=== PATIENT | female | born 1970 | race Hispanic/Latino ===

== ENCOUNTER 2019-05-04 01:11 | Observation (INO) | payer BC ==
[2019-05-04] MEDS ORDERED: ASPIRIN PO ONE (01:49)
[2019-05-04 02:40] LABS: Basophils # (Auto) 0.1 K/mm3 (0.0-0.1); Basophils % (Auto) 0.7 % (0.0-1.8); Eosinophils # (Auto) 0.1 K/mm3 (0.0-0.4); Eosinophils % (Auto) 0.6 % (0.0-4.3); Hematocrit 33.9 % (30.3-42.9); Hemoglobin 10.7 gm/dl (10.1-14.3); Lymphocytes # (Auto) 1.8 K/mm3 (1.2-5.4); Lymphocytes % (Auto) 19.1 % (13.4-35.0); Mean Corpuscular HGB Conc 31 % (30-34); Monocytes # (Auto) 0.7 K/mm3 (0.0-0.8); Monocytes % (Auto) 7.4 % (0.0-7.3); Platelet Count 263 K/mm3 (140-440); Red Blood Count 5.04 M/mm3 (3.65-5.03); Red Cell Distribution Width 17.4 % (13.2-15.2)
[2019-05-04 02:43] LABS: Mean Corpuscular Volume 67 fl (79-97)
[2019-05-04 02:51] LABS: INR 0.92 (0.87-1.13)
[2019-05-04 02:52] LABS: Partial Thromboplastin Time 29.2 Sec. (24.2-36.6)
[2019-05-04 03:01] LABS: BUN/Creatinine Ratio 16; Blood Urea Nitrogen 18 mg/dL (7-17); Calcium 9.4 mg/dL (8.4-10.2); Hemolysis Index 5
[2019-05-04] MEDS ORDERED: CARAFATE PO ONE (03:15)
[2019-05-04] MEDS ORDERED: NITROSTAT SL PRN ×2 (03:15→06:26)
[2019-05-04] MEDS ORDERED: PEPCID PO ONE (03:15)
--- NOTE | 2019-05-04 03:15 | XRay Report ---
PROCEDURE: XR CHEST 1V AP TECHNIQUE: Chest radiograph single view. HISTORY: Chest Pain COMPARISONS: None . FINDINGS: The cardiomediastinal silhouette appears normal. The lungs are clear. The bones and soft tissues are unremarkable. IMPRESSION: No evidence of acute cardiopulmonary disease. This document is electronically signed by Lynne Das MD., May 04 2019 03:13:31 AM ET
--- NOTE | 2019-05-04 03:16 | Emergency Department Report ---
ED Chest Pain HPI - General Chief Complaint: Chest Pain Stated Complaint: CHEST PAIN SOB RACING HEART Time Seen by Provider: 05/04/19 02:28 Source: patient, RN notes reviewed Mode of arrival: Ambulatory Limitations: No Limitations - History of Present Illness Initial Comments: Patient does not have a local primary care doctor. This is a 48-year-old female. The patient is not known to this provider previously. Her past medical history includes hypertension, anxiety, depression and obesity. Reports a negative cardiac nuclear stress test 4 years ago. The patient states she is not . She has not taken aspirin recently. She denies DVT, pulmonary embolus or risk factors. Presents to the ER with complaint of chest discomfort. Chest discomfort started at approximately 10:00 yesterday evening. It is described as a sensation of "weak", and she also describes pain that radiates to her left neck, jaw, into her back. The patient denies vomiting, she did feel nauseous, she denies diaphoresis, she denies exertional shortness of breath. She reports that she felt her breathing was "off." Patient reports that this feels similar to a prior event a few years ago, when she had her negative nuclear stress test. The patient currently denies headache, neck pain, abdominal pain, leg pain, leg swelling and urinary symptoms. She denies DVT, pulmonary embolus risk factors. She denies oral contraceptive use. MD Complaint: chest pain -: Sudden Onset: other (laying down and sleeping) Pain Location: left chest Pain Radiation: back Severity: mild Consistency: intermittent Improves With: nothing Worsens With: nothing Aspirin use within the Past 7 Days: (0) No - Related Data On Oral Contraceptives: No Allergies Allergy/AdvReac Type Severity Reaction Status Date / Time Sulfa (Sulfonamide Allergy Rash Verified 05/04/19 01:49 Antibiotics) Heart Score - HEART Score History: Moderately suspicious EKG: Non-specific Age: 45-65 Risk factors: 1-2 risk factors Troponin: < normal limit HEART Score: 4 - Critical Actions Critical Actions: 4-6 pts:12-16.6% risk of adverse cardiac event. Should be admitted ED Review of Systems ROS: Stated complaint: CHEST PAIN SOB RACING HEART Other details as noted in HPI Constitutional: denies: fever, malaise ENT: denies: hearing loss Respiratory: denies: cough Cardiovascular: chest pain Gastrointestinal: nausea. denies: vomiting Genitourinary: denies: dysuria Musculoskeletal: denies: back pain Skin: denies: lesions Neurological: denies: weakness Psychiatric: anxiety ED Past Medical Hx - Past Medical History Previous Medical History?: Yes Hx Hypertension: Yes Hx Psychiatric Treatment: Yes (Anxiety, Depression) Additional medical history: Obesity - Surgical History Hx Cholecystectomy: Yes Additional Surgical History: Tonsilectomy - Social History Smoking Status: Never Smoker Substance Use Type: None ED Physical Exam - General Limitations: No Limitations General appearance: alert, anxious, obese - Head Head exam: Present: atraumatic, normocephalic - Eye Eye exam: Present: normal appearance, EOMI - ENT ENT exam: Present: normal exam, normal orophraynx, mucous membranes moist, normal external ear exam - Neck Neck exam: Present: normal inspection, full ROM. Absent: tenderness, meningismus - Respiratory Respiratory exam: Present: normal lung sounds bilaterally, chest wall tendernes s, other (chaperoned by reaming machine tender Annel). Absent: respiratory distress, wheezes, rales, rhonchi, stridor - Cardiovascular Cardiovascular Exam: Present: regular rate, normal rhythm, normal heart sounds. Absent: bradycardia, tachycardia, irregular rhythm, systolic murmur, diastolic murmur, rubs, gallop - GI/Abdominal GI/Abdominal exam: Present: soft. Absent: distended, tenderness, guarding, rebound, rigid, pulsatile mass - Extremities Exam Extremities exam: Present: normal inspection, full ROM, other (2+ pulses noted in the bilateral upper, lower extremities. Compartments soft. No long bony tenderness. The pelvis is stable.). Absent: pedal edema, calf tenderness - Back Exam Back exam: Present: normal inspection, full ROM. Absent: tenderness, CVA tenderness (R), CVA tenderness (L), paraspinal tenderness, vertebral tenderness - Neurological Exam Neurological exam: Present: alert, oriented X3, other (Extraocular movements intact. Tongue midline. No facial droop. Facial sensation intact to light touch in the V1, V2, V3 distribution bilaterally. 5 and 5 strength in 4 extremities.. Sensation is intact to light touch in 4 extremities.). Absent: motor sensory deficit - Psychiatric Psychiatric exam: Present: anxious - Skin Skin exam: Present: warm, dry, intact, normal color. Absent: rash ED Course Vital Signs 06/05/04/19 05/04/19 01:43 02:22 02:30 Temperature 97.6 F Pulse Rate 73 96 H 93 H Respiratory 20 14 14 Rate Blood Pressure 133/80 O2 Sat by Pulse 98 98 Oximetry 05/04/19 05/04/19 05/04/19 02:46 03:00 03:16 Temperature Pulse Rate 97 H 99 H 93 H Respiratory 25 H 22 24 Rate Blood Pressure 109/70 O2 Sat by Pulse 95 96 96 Oximetry 05/04/19 05/04/19 05/04/19 03:30 03:46 04:00 Temperature Pulse Rate 89 89 86 Respiratory 23 23 24 Rate Blood Pressure 108/49 111/58 118/73 O2 Sat by Pulse 95 95 95 Oximetry 05/04/19 05/04/19 05/04/19 04:16 04:30 04:46 Temperature Pulse Rate 88 91 H 90 Respiratory 25 H 21 22 Rate Blood Pressure 113/65 106/58 111/52 O2 Sat by Pulse 95 95 95 Oximetry 05/04/19 05/04/19 05/04/19 05:00 05:16 05:30 Temperature Pulse Rate 88 89 87 Respiratory 15 17 20 Rate Blood Pressure 120/68 100/67 115/69 O2 Sat by Pulse 100 98 98 Oximetry 05/04/19 05:46 Temperature Pulse Rate 65 Respiratory 20 Rate Blood Pressure 111/70 O2 Sat by Pulse 100 Oximetry - Reevaluation(s) Reevaluation #1: 05/04/19 05:54 Differential diagnosis, including but not limited to: GERD, gastritis, hiatal hernia, costochondritis, pneumonia, anxiety, acute coronary syndrome Assessment and plan: 58-year-old female with reproducible chest wall pain, and chest pain. The patient is afebrile with reassuring vital signs. EKG nonspecific, without prior for comparison, troponin negative 2, no pulmonary embolism or DVT risk factors, low risk by well's criteria, perc negative, moderate risk by heart score Patient still having persistent back discomfort 4 hours, in spite of appropriate medical management. Given her risk of the heart score, abnormal EKG, patient to be admitted to the medical service for cardiac risk stratification. Case was presented to the Hospital physician, Dr. Carr, who has accepted the patient to his service. We discussed the history of physical laboratory studies, inpatient team requested d-dimer. We will order a d-dimer, and deferred to the inpatient team to follow this up. 05/04/19 06:04 GARFIELD score - Garfield Score Age > 65: (0) No Aspirin use within the Past 7 Days: (0) No 3 or more CAD Risk Factors: (0) No 2 or more Angina events in past 24 hrs: (0) No Known CAD with more than 50% Stenosis: (0) No Elevated Cardiac Markers: (0) No ST Deviation Greater than 0.5mm: (0) No GARFIELD Score: 0 ED Medical Decision Making - Lab Data Result diagrams: 05/04/19 02:25 05/04/19 02:25 Vital Signs 05/04/19 05/04/19 05/04/19 01:43 02:22 02:30 Temperature 97.6 F Pulse Rate 73 96 H 93 H Respiratory 20 14 14 Rate Blood Pressure 133/80 O2 Sat by Pulse 98 98 Oximetry 05/04/19 05/04/19 05/04/19 02:46 03:00 03:16 Temperature Pulse Rate 97 H 99 H 93 H Respiratory 25 H 22 24 Rate Blood Pressure 109/70 O2 Sat by Pulse 95 96 96 Oximetry 05/04/19 05/04/19 05/04/19 03:30 03:46 04:00 Temperature Pulse Rate 89 89 86 Respiratory 23 23 24 Rate Blood Pressure 108/49 111/58 118/73 O2 Sat by Pulse 95 95 95 Oximetry 05/04/19 05/04/19 04:16 04:30 Temperature Pulse Rate 88 91 H Respiratory 25 H 21 Rate Blood Pressure 113/65 106/58 O2 Sat by Pulse 95 95 Oximetry Lab Results 05/04/19 05/04/19 05/04/19 Range/Units 02:25 02:25 02:25 WBC 9.5 (4.5-11.0) K/mm3 RBC 5.04 H (3.65-5.03) M/mm3 Hgb 10.7 (10.1-14.3) gm/dl Hct 33.9 (30.3-42.9) % MCV 67 L (79-97) fl MCH 21 L (28-32) pg MCHC 31 (30-34) % RDW 17.4 H (13.2-15.2) % Plt Count 263 (140-440) K/mm3 Lymph % (Auto) 19.1 (13.4-35.0) % [place] % (Auto) 7.4 H (0.0-7.3) % Eos % (Auto) 0.6 (0.0-4.3) % Baso % (Auto) 0.7 (0.0-1.8) % Lymph # 1.8 (1.2-5.4) K/mm3 [place] # 0.7 (0.0-0.8) K/mm3 Eos # 0.1 (0.0-0.4) K/mm3 Baso # 0.1 (0.0-0.1) K/mm3 Seg Neutrophils % 72.2 H (40.0-70.0) % Seg Neutrophils # 6.9 (1.8-7.7) K/mm3 PT (12.2-14.9) Sec. INR (0.87-1.13) APTT (24.2-36.6) Sec. Sodium 137 (137-145) mmol/L Potassium 3.7 (3.6-5.0) mmol/L Chloride 96.7 L (98-107) mmol/L Carbon Dioxide 26 (22-30) mmol/L Anion Gap 18 mmol/L BUN 18 H (7-17) mg/dL Creatinine 1.1 (0.7-1.2) mg/dL Estimated GFR 53 ml/min BUN/Creatinine Ratio 16 % Glucose 107 H (65-100) mg/dL Calcium 9.4 (8.4-10.2) mg/dL Magnesium (1.7-2.3) mg/dL Total Creatine Kinase (30-135) units/L Troponin T < 0.010 (0.00-0.029) ng/mL HCG, Qual Negative (Negative) 05/04/19 05/04/19 Range/Units 02:31 02:31 WBC (4.5-11.0) K/mm3 RBC (3.65-5.03) M/mm3 Hgb (10.1-14.3) gm/dl Hct (30.3-42.9) % MCV (79-97) fl MCH (28-32) pg MCHC (30-34) % RDW (13.2-15.2) % Plt Count (140-440) K/mm3 Lymph % (Auto) (13.4-35.0) % [place] % (Auto) (0.0-7.3) % Eos % (Auto) (0.0-4.3) % Baso % (Auto) (0.0-1.8) % Lymph # (1.2-5.4) K/mm3 [place] # (0.0-0.8) K/mm3 Eos # (0.0-0.4) K/mm3 Baso # (0.0-0.1) K/mm3 Seg Neutrophils % (40.0-70.0) % Seg Neutrophils # (1.8-7.7) K/mm3 PT 12.1 L (12.2-14.9) Sec. INR 0.92 (0.87-1.13) APTT 29.2 (24.2-36.6) Sec. Sodium (137-145) mmol/L Potassium (3.6-5.0) mmol/L Chloride (98-107) mmol/L Carbon Dioxide (22-30) mmol/L Anion Gap mmol/L BUN (7-17) mg/dL Creatinine (0.7-1.2) mg/dL Estimated GFR ml/min BUN/Creatinine Ratio % Glucose (65-100) mg/dL Calcium (8.4-10.2) mg/dL Magnesium 2.30 (1.7-2.3) mg/dL Total Creatine Kinase 92 (30-135) units/L Troponin T (0.00-0.029) ng/mL HCG, Qual (Negative) - EKG Data -: EKG Interpreted by Ne EKG shows normal: sinus rhythm Rate: normal - EKG Data When compared to previous EKG there are: previous EKG unavailable 05/04/19 05:53 EKG #1 shows a sinus rhythm, 95 bpm, normal axis, QTC within normal limits, premature ventricular contraction, abnormal EKG, no prior for comparison, not consistent with ST elevation myocardial infarction. EKG number two appears to be unchanged from prior. - Radiology Data Radiology results: report reviewed, image reviewed X-ray of the chest is negative for acute disease Critical care attestation.: If time is entered above; I have spent that time in minutes in the direct care of this critically ill patient, excluding procedure time. ED Disposition Clinical Impression: Acute chest pain, Shortness of breath, Abnormal EKG Disposition: OP ADMIT IP TO THIS HOSP Is pt being admited?: Yes Does the pt Need Aspirin: Yes (chest [) Condition: Stable Instructions: Chest Pain (ED) Referrals: JEANNIE TALAVERA MD [Primary Care Provider] - 3-5 Days
[2019-05-04] MEDS ORDERED: ZOFRAN IV PRN (06:24)
[2019-05-04] MEDS ORDERED: MORPHINE IV PRN (06:24)
--- NOTE | 2019-05-04 08:21 | Cat Scan Report ---
PROCEDURE: CT ANGIO CHEST TECHNIQUE: Computerized tomographic angiography of the chest was performed after the IV injection of iodinated nonionic contrast including image processing. The image data was postprocessed using 2-di mensional multiplanar reformatted (MPR) and 3-dimensional (MIP and/or volume rendered) techniques. Au tomated exposure control, adjustment of mA and/or kV according to patient size, or iterative reconstr uction dose optimization techniques were utilized. HISTORY: chest pain with elevated D-dimer COMPARISONS: None . FINDINGS: Normal caliber main pulmonary artery. Well opacified pulmonary arterial tree. No pulmonary embolism . No pericardial effusion. Thoracic aorta is normal in course and caliber. No periaortic fluid or stranding. No pneumothorax, effusion or focal airspace disease. The central airways are patent. No bronchiectasi s. Imaged portion of the upper abdomen is remarkable for prior cholecystectomy. The superficial soft tissues are unremarkable. No acute bony abnormality or worrisome osseous lesions identified. IMPRESSION: No pulmonary embolism or other acute finding. This document is electronically signed by Vimal Denny MD., May 04 2019 08:19:02 AM ET
[2019-05-04] MEDS ORDERED: LEXISCAN IV ONE (08:23)
--- NOTE | 2019-05-04 09:08 | History and Physical Report ---
CHIEF COMPLAINT: Chest pain. HISTORY OF PRESENT ILLNESS: The patient is a 48-year-old female who says she has been having tightness and heaviness in the retrosternal area radiating to the back and associated with shortness of breath and nausea, but no vomiting. Also, the patient denied a history of dizziness and denied a history of fever or chills or cough, and also denied a history of diaphoresis, and presented for evaluation. PAST MEDICAL HISTORY: Pertinent for hypertension and obesity. Also, the patient has past medical history of anxiety and depression. PAST SURGICAL HISTORY: Pertinent for cholecystectomy and tonsillectomy. FAMILY HISTORY: Pertinent for coronary artery disease in the father. SOCIAL HISTORY: The patient does not smoke, does not drink alcohol, and does not use illicit drugs. MEDICATIONS: The patient's home medications are not known at this time. ALLERGIES: The patient is ALLERGIC TO SULFA DRUGS. REVIEW OF SYSTEMS: CONSTITUTIONAL: There is no fever, no chills, no diaphoresis. HEENT: There is no headache or sore throat. CARDIOVASCULAR SYSTEM: Chest pain is present. No orthopnea. RESPIRATORY SYSTEM: Shortness of breath is present. There is no cough. GASTROINTESTINAL SYSTEM: There is nausea but no vomiting, no abdominal pain, diarrhea or constipation. NEUROLOGICAL SYSTEM: There is no numbness, no dizziness, no altered mental status. MUSCULOSKELETAL SYSTEM: There is no joint pain or swelling. DERMATOLOGICAL SYSTEM: There is no skin rash or itching. GENITOURINARY SYSTEM: There is no dysuria, hematuria, or flank pain. Rest of system review is normal. PHYSICAL EXAMINATION: GENERAL: At the time of exam, the patient was found to be alert, oriented x 3, and not in acute distress. VITAL SIGNS: Shows normal temperature with pulse of 65, respirations 20, blood pressure 111/70, O2 of 100% on room air. HEENT: Showed pupils to be equal, round, reactive to light and accommodating. Extraocular muscles are intact. NECK: Supple with no JVD or carotid bruit. CARDIOVASCULAR SYSTEM: Showed normal first and second heart sounds with no gallops or murmurs. RESPIRATORY SYSTEM: Showed good air entry on both sides of the lungs with no abnormal breath sounds. GASTROINTESTINAL SYSTEM: Showed abdomen to be full, soft, nontender with no organomegaly or rigidity. NEUROLOGICAL: Shows no focal deficit. MUSCULOSKELETAL SYSTEM: Showed no joint swelling or tenderness. DERMATOLOGICAL SYSTEM: Showed no skin rash. GENITOURINARY SYSTEM: Showing no costovertebral angle tenderness. PERTINENT LABORATORY DATA: The patient had CBC done that came back showing a low MCV of 67 with normal hemoglobin and normal hematocrit. The patient's coagulation studies were unremarkable except for elevated D-dimer of 326.29. The patient's chemistry was unremarkable. Cardiac enzymes came back normal. Serum test was negative. IMAGING STUDIES: The patient had a chest x-ray done that came back showing no cardiopulmonary abnormality. DIAGNOSIS: Chest pain. PLAN OF CARE: 1. The patient will be placed on observation on telemetry. 2. The patient will have cardiac enzymes involving troponin, total CK and CK-MB checked every 6 hours x 2 more levels. 3. The patient will be n.p.o. for Lexiscan stress test this morning. 4. The patient will have CT angiogram of the chest done this morning because of chest pain with elevated D-dimer. 5. The patient will be on Nitro paste 1/2-inch to anterior chest wall q.i.d. and will also be on sublingual nitroglycerin for breakthrough chest pain with a dose of 0.4 mg every 5 minutes as needed for pain. 6. The patient will be on IV morphine 2 mg every 3 hours as needed for pain and IV Zofran 4 mg every 8 hours for nausea and vomiting. 7. The patient will be on aspirin 325 mg by mouth daily and will be on heparin 5000 units subcutaneous q. 12 hours for DVT prophylaxis. 8. The patient will be on oxygen by nasal cannula at 2 liters per minute. 9. The patient will remain n.p.o. for Lexiscan stress test this morning, JOB# [id number] OCN/NTS
[2019-05-04] MEDS: NITRO-BID 2% TP SCH ×2 (10:00→14:00)
[2019-05-04] MEDS ORDERED: HEPARIN SUB-Q SCH (10:00)
[2019-05-04] MEDS ORDERED: ASPIRIN PO SCH (10:00)
--- NOTE | 2019-05-04 11:14 | Discharge Summary ---
Providers - Providers Date of Admission: 05/04/19 06:06 Date of discharge: 05/04/19 Attending physician: LITO ARREGUIN Primary care physician: JEANNIE TALAVERA Hospitalization Condition: Stable Pertinent studies: CXR Stress test 2d echo CTA chest Hospital course: This is a 48-year-old female with past medical history includes hypertension, anxiety, depression and obesity negative cardiac nuclear stress test 4 years ago Presented to ER with c/o chest pain. Her Max were normal, CTA did not show any PE, CXR showed no infiltrates, stress test showed no reversible ischemia. Patient was then discharged home in stable condition with outpt followup. Discharge diagnosis: Atypical chest pain, likely GERD hypertension, anxiety, depression and morbid obesity Morbid obesity, due to access calorie Disposition: DC- TO HOME OR SELFCARE Time spent for discharge: 34 minutes Core Measure Documentation - Palliative Care Palliative Care/ Comfort Measures: Not Applicable - Core Measures Any of the following diagnoses?: none Exam - Constitutional Vitals: Temp Pulse Resp BP Pulse Ox 97.6 F 87 26 H 140/80 99 05/04/19 01:43 05/04/19 07:10 05/04/19 07:10 05/04/19 08:50 05/04/19 07:10 General appearance: Present: no acute distress, obese - EENT Eyes: Present: PERRL ENT: hearing intact, clear oral mucosa - Neck Neck: Present: supple, normal ROM - Respiratory Respiratory effort: normal Respiratory: bilateral: CTA - Cardiovascular Heart Sounds: Present: S1 & S2. Absent: rub, click - Extremities Extremities: pulses symmetrical, No edema Peripheral Pulses: within normal limits - Abdominal General gastrointestinal: Present: soft, non-tender, non-distended, normal bowel sounds - Integumentary Integumentary: Present: clear, warm, dry - Musculoskeletal Musculoskeletal: gait normal, strength equal bilaterally - Psychiatric Psychiatric: appropriate mood/affect, intact judgment & insight - Neurologic Neurologic: CNII-XII intact, moves all extremities Plan Activity: advance as tolerated Weight Bearing Status: Weight Bear as Tolerated Diet: low fat, low salt Follow up with: JEANNIE TALAVERA MD [Primary Care Provider] - 3-5 Days Prescriptions: Pantoprazole [Protonix] 40 mg PO QDAY #30 tablet
[2019-05-04 12:43] LABS: Creatine Kinase MB 1.2 ng/mL (0.0-4.0)
[2019-05-04 13:16] VITALS: BP 123/70
--- NOTE | 2019-05-04 20:15 | Treadmill Report ---
ORDERING PHYSICIAN: Concha Bhatia MD INDICATION: Chest pain. FINDINGS: There is evidence of a small fixed basal anterior wall defect, mild in intensity due to overlying breast attenuation artifact noted on plantar images. The left ventricle appears to be normal in size. Gating was not performed due to multifocal PVCs. IMPRESSION: 1. No scintigraphic evidence of myocardial ischemia. 2. Small fixed basal anterior wall defect, mild in intensity, most likely due to overlying breast attenuation artifact. 3. Gating was not performed due to multifocal PVCs. JOB# [id number] TRAVIS/DONNA
== END 2019-05-04 15:45 | disposition home or self-care (01) ==
LOC: ED 01:11 → SUATTDRO 01:11 → 4A 06:06
PROVIDERS: ADMIT Internal Medicine; ATTEND Internal Medicine
DX: R07.89 Other chest pain (principal); I10 Essential (primary) hypertension; F41.9 Anxiety disorder, unspecified; F32.9 Major depressive disorder, single episode, unspecified; E66.01 Morbid (severe) obesity due to excess calories; Z88.2 Allergy status to sulfonamides; Z90.89 Acquired absence of other organs
CPT/HCPCS: 36415; 71045; 71275; 78452; 80048; 82550; 82553; 83735; 84484; 84703; 85025; 85379; 85610; 85730; 93005; 93010; 93017; 93306; 99284; A9502; G0378; J2785; Q9967

== ENCOUNTER 2019-06-25 10:08 | Outpatient (CLI) | payer BC ==
[2019-06-25 12:03] LABS: Hemoglobin 10.4 gm/dl (10.1-14.3); Mean Corpuscular HGB Conc 31 % (30-34); Platelet Count 273 K/mm3 (140-440)
[2019-06-25 12:06] LABS: Mean Corpuscular Volume 68 fl (79-97)
[2019-06-25 12:25] LABS: Alanine Aminotransferase 9 units/L (7-56); BUN/Creatinine Ratio 15; Blood Urea Nitrogen 12 mg/dL (7-17); Calcium 8.9 mg/dL (8.4-10.2); Chol/HDL Ratio 3.17 %; HDL Cholesterol 56 mg/dL (40-59); Hemolysis Index 0; LDL Cholesterol,Direct 124 mg/dL (50-130)
--- NOTE | 2019-06-25 13:40 | Ultrasound Report ---
ULTRASOUND PELVIC COMPLETE ULTRASOUND TRANSVAGINAL HISTORY: N94.6)Dysmenorrhea, unspecified/N92.0: Excessive and frequent men. TECHNIQUE: Grayscale and color Doppler imaging performed. COMPARISON: None FINDINGS: The uterus is anteverted and mildly enlarged measuring 12.4 x 4.9 x 7.1 cm. Multiple small uterine fibroids are identified. There are 2 fibroids in the anterior wall measuring up to 1.6 cm. A fundal fibroid measures 2.9 x 3.6 x 4.1 cm. No large submucosal fibroid is identified. A large naboth geno cyst is noted measuring 1.6 cm. The endometrial stripe measures 12 mm. No mass or fluid collection. The right ovary is obscured. The left ovary is unremarkable measuring 2.9 x 3.1 x 2.2 cm. IMPRESSION: Mild uterine fibroid disease. The endometrium measures 12 mm. Signer Name: Leonides Lawson Jr, MD Signed: 06/25/2019 1:36 PM Workstation Name: [id number]
--- NOTE | 2019-06-25 16:21 | Mammography Report ---
BILATERAL DIGITAL SCREENING MAMMOGRAM WITH CAD INDICATION: Routine screening mammography. TECHNIQUE: Digital bilateral 2D mammography was obtained in the craniocaudal and mediolateral obliq ue projections. This examination was interpreted with the benefit of Computer-Aided Detection analysi s. COMPARISON: None available. FINDINGS: Breast Density: The breasts are almost entirely fatty. No mass, architectural distortion or suspicious calcifications. IMPRESSION:No mammographic evidence of malignancy. BI-RADS Category 1: Negative. No mammographic evidence of malignancy. Recommend routine screening m ammography in one year. A "normal" or negative report should not discourage follow up or biopsy of a clinically significant f inding. A written summary of these findings will be mailed to the patient. The patient will be entered into a mammography reporting system which will generate a reminder letter for the patient's next appointmen t at the appropriate interval. The [employer] recommends yearly mammograms starting at age 40 and continuing as l sukhdev as a woman is in good health. Breast MRI is recommended for women with an approximate 20-25% or greater lifetime risk of breast cancer, including women with a strong family history of breast or ova taylor cancer or who have been treated for Hodgkin's disease. Signer Name: Ryne Powers MD Signed: 06/25/2019 4:17 PM Workstation Name: [id number]
[2019-06-29 14:25] LABS: Vitamin D, 25-OH, D2 <4 ng/mL
== END 2019-06-25 10:09 | disposition home or self-care (01) ==
LOC: MAMMO 10:08
PROVIDERS: ATTEND Obstetrics & Gynecology
DX: Z12.31 Encounter for screening mammogram for malignant neoplasm of breast (principal); D25.0 Submucous leiomyoma of uterus; N88.8 Other specified noninflammatory disorders of cervix uteri; I10 Essential (primary) hypertension; Z90.89 Acquired absence of other organs
CPT/HCPCS: 36415; 76830; 76856; 77067; 80053; 80061; 82306; 83036; 84443; 85027

== ENCOUNTER 2019-09-02 12:00 | Outpatient (CLI) | payer BC ==
--- NOTE | 2019-09-02 16:01 | XRay Report ---
XR knees standing AP Bilateral INDICATION / CLINICAL INFORMATION: M17.11) Unilateral primary osteoarthritis, right knee. COMPARISON: None available. FINDINGS: BONES/JOINT(S): Advanced DJD in the right knee, greatest in the medial femorotibial compartment with mild secondary varus angulation. Moderate DJD in the left knee with also mild secondary varus angulat ion. No aggressive appearing bone lesions or acute fracture. SOFT TISSUES: No significant abnormality. ADDITIONAL FINDINGS: None. Signer Name: Howie Jacobsen MD Signed: 09/02/2019 3:57 PM Workstation Name: [id number]
== END 2019-09-02 12:01 | disposition home or self-care (01) ==
LOC: XRAY 12:00
PROVIDERS: ATTEND Orthopaedic Surgery
DX: M17.0 Bilateral primary osteoarthritis of knee (principal)
CPT/HCPCS: 73565

== ENCOUNTER 2019-11-29 14:05 | Outpatient (CLI) | payer BC ==
[2019-11-29 14:25] LABS: Mean Corpuscular HGB Conc 30 % (30-34); Platelet Count 293 K/mm3 (140-440); Red Cell Distribution Width 17.9 % (13.2-15.2)
[2019-11-29 14:27] LABS: Hematocrit 33.8 % (30.3-42.9); Hemoglobin 10.2 gm/dl (10.1-14.3); Mean Corpuscular Volume 66 fl (79-97)
[2019-11-29 14:55] LABS: Erythrocyte Sedimentation Rate 37 mm/Hr (0-20)
== END 2019-11-29 14:06 | disposition home or self-care (01) ==
LOC: LAB 14:05
PROVIDERS: ATTEND Internal Medicine
DX: R50.81 Fever presenting with conditions classified elsewhere (principal); R53.1 Weakness; M79.7 Fibromyalgia
CPT/HCPCS: 36415; 82728; 84436; 84443; 84480; 85027; 85652; 86738